=== PATIENT | male | born 1985 ===

== ENCOUNTER 2020-12-29 16:56 | Outpatient (REF) | payer BC, SELFPAY ==
[2020-12-29 21:18] LABS: Calculated LDL 98 mg/dL (<100); Cholesterol 162 mg/dL (<200); Glucose 90 mg/dL (74-106); HDL Cholesterol 45 mg/dL (40-60); Triglyceride 98 mg/dL (<150)
[2021-01-01 10:06] LABS: HIV-1/2 Ag & Ab Screen Negative (Negative)
[2021-01-01 10:34] LABS: Hepatitis C Ab w Rflx HCV PCR Negative (Negative)
== END 2020-12-29 16:57 | disposition home or self-care (01) ==
LOC: NCHCN 16:56
PROVIDERS: Visit Provider Nurse Practitioner Family
DX: Z00.00 Encounter for general adult medical examination without abnormal findings (principal); Z13.220 Encounter for screening for lipoid disorders; Z11.4 Encounter for screening for human immunodeficiency virus [HIV]; Z13.1 Encounter for screening for diabetes mellitus; Z11.59 Encounter for screening for other viral diseases
CPT/HCPCS: 80061; 82947; 86803; 87389

== ENCOUNTER 2025-03-13 02:01 | Emergency (ER) | payer BC, SELFPAY ==
--- NOTE | 2025-03-13 02:00 | DI.RAD_ITS ---
Exam(s) XR CHEST 2V PA LATERAL EXAM: XR CHEST 2V PA LATERAL CLINICAL HISTORY: cough, SOB TECHNIQUE: 2D digital imaging was performed. Two views. COMPARISON: No exams were available for comparison FINDINGS: HEART: Normal size. Aorta: Not dilated. PULMONARY VASCULATURE: Normal. MEDIASTINUM: Unremarkable. LUNGS: Clear. PLEURAL SPACE: No pleural effusion or pneumothorax. BONE:Unremarkable for age. SOFT TISSUES: Unremarkable. IMPRESSION: No acute abnormality. The preliminary [facility] report was reviewed. DATA REPOSITORY: RADIATION DOSE DELIVERED:
[2025-03-13 02:05] VITALS: BP 157/65; PULSE 92; RESP 18; TEMP 36.8; O2SAT 93
[2025-03-13 02:08] VITALS: RESP 16
--- NOTE | 2025-03-13 02:13 | ED.GENADUL_ITS ---
Discharge Plan Disposition Patient Disposition: Home Condition: Good Discharge Details Clinical Impression: Acute upper respiratory infection Primary Care Provider: Unknown,Unknown ED Provider: Reena Becerra Home Meds and New Rx's Prescriptions: No Action No Known Home Meds Discharge Instructions Instructions: Upper Respiratory Infection ED Additional Instructions: Albuterol inhaler up to every 4 hours as needed for shortness of breath and wheezing. Call your primary care doctor in the morning to schedule an appointment for within the next 72 hours to followup on your visit here. At that visit please mention your blood pressure (which is high here today) and your platelet (blood clotting cells) which are a little bit low. They may wish to recheck both of these. Return to the emergency department for new or worsening symptoms including fever, if you feel short of breath and it does not get better after using your inhaler, chest pain, or if you have any other concerns. HPI General Mode of arrival: ambulatory . Date/Time Provider Initiated Documentation: 03/13/25 02:02 . Limitations to Documentation: no limitations . Information obtained by: patient . HPI Narrative: 39yo M who reports hx of pneumonia multiple times in the past , otherwise no medical conditions, presenting with cough and shortness of breath. Symptoms sta rted yesterday with cough. This has persisted, today noticed shortness of breath like he 'can't take in a full breath of air'. No fevers; has felt chills and generally unwell. No chest pain or lightheadedness No known sick contacts. Otherwise in his usual state of health with no rash, nausea, vomiting, abdominal pain, headache, LE edema, or other concerns. Related Data Home Medications ?Medication ?Instructions ?Recorded ?Confirmed Unknown [No Known Home Meds] 03/13/25 0 03/13/25 Allergies Allergy/AdvReac Type Severity Reaction Status Date / Time No Known Allergies Allergy Unverified 03/13/25 02:10 General Stated Complaint: SOB NATY: 3 Review of Systems Narrative: see HPI Exam Narrative Exam Narrative: General: Alert, well appearing, well nourished, in no acute distress. Head: Normocephalic, atraumatic Neck: Trachea midline, ?Neck supple. ENT: ?MMM.? No oropharygeal lesions or exudate. Cardiac: ?RRR, no murmurs appreciated Resp: No respiratory distress. Mild wheeze R > L. Abd: ?Soft, non-distended, nontender Extremities: ?No deformities.? No peripheral edema. Neurologic: GCS 15. ? Moves all extremities freely against gravity Course Vital Signs Vital signs: Vital Signs Temperature 36.8 C 03/13/25 02:05 Pulse 92 H 03/13/25 02:05 Respiratory Rate 18 03/13/25 02:05 Blood Pressure 157/65 H 03/13/25 02:05 Pulse Oximetry 93 03/13/25 02:05 Temperature 36.8 C 03/13/25 02:05 Temperature Source Oral 03/13/25 02:05 Pulse 92 H 03/13/25 02:05 Respiratory Rate 16 03/13/25 02:08 Respiratory Effort Non-Labored 03/13/25 02:08 Blood Pressure 157/65 H 03/13/25 02:05 Pulse Oximetry 93 03/13/25 02:05 Pain Level 4 03/13/25 02:05 Medical Decision Making 39yo M who reports hx of pneumonia multiple times in the past , otherwise no medical conditions, presenting with cough and shortness of breath x 2 days. Vital signs reassuring on arrival. No respirtary distress on exam, does have bilateral wheezing. Will treat with albuterol neb and get labs and CXR. Not overtly septic, not suggestive of ACS, pulmonary embolism. Labs reviewed as below, CBC reassuring with no leukocytosis or anemia (does have mild thrombocytopenia), CMP with no actionable abnormalities. CXR independently reviewed; no focal pneumonia or pneumothorax on my view, radiology read with no acute findings. Respiratory viral swab negative for covid and flu. On reassessment he reports his breathing feels much better. No longer wheezing on exam. Repeat VS remain reassuring. Will discharge home with albuterol inhaler and advise PCP followup. Discharged home; discharge instructions and r eturn precautions were reviewed with patient who verbalized understanding. All questions were answered and he is in full agreement with the plan. Lab Data Lab results reviewed: Yes I reviewed the patient's lab results. PFSH All Active Problems (Updated 03/13/25 @ 03:17 by Reena Becerra MD) Acute upper respiratory infection (Acute) Social History Smoking/Tobacco Use Status: Current every day Smoking risk assessment performed?: Yes Alcohol Intake: current Alcohol Intake frequency: a few times a month Substance use type: does not use Housing: house [facility] Have you Been Recently Intoxicated or Drunk Within the Last 30 days?: No Have you Ever Experienced Previous Episodes of Alcohol Withdrawal?: No Have you ever Experienced Withdrawal Seizures?: No Have you ever Experienced Delirium Tremens(DT)s?: No Have you ever undergone Alcohol Rehabilitation Treatment (i.e, inpt ot outpatient treatment programs)?: No Have you ever Experienced Blackouts?: No Have you ever Combined Alcohol with other Downers within the last 90 days?: No Have you ever Combined Alcohol with any other Substance of Abuse during the last 90 days?: No Positive Blood Alcohol level on Presentation? [PCS.BAL]: No Evidence of Increased Autonomic Activity (i.e. HR>120, tremor, sweating, agitation, nausea)?: No Result: 0
[2025-03-13 02:28] LABS: Abs Immature Grans 0.02 10^3/uL (0.0-0.06); HCT 43.9 % (40.0-50.0); HGB 15.4 g/dL (13.5-17.5); Immature Grans % 0.2 %; MCH 32.6 pg (27.0-33.0); MCHC 35.1 % (32.0-36.0); MCV 93 fL (80-95); MPV 11.1 fL (8.0-11.0); Platelet Count 119 10^3/uL (130-400); RBC 4.72 10^6/uL (4.36-5.78); RDW 12.0 % (11.8-14.1); RDW-SD 41.8 fL; WBC 8.70 10^3/uL (4.4-10.8)
[2025-03-13 02:29] VITALS: O2SAT 93
[2025-03-13] MEDS: Albuterol 2.5 MG/3 ML INH SOLN VIAL UPD (02:29)
[2025-03-13 02:42] VITALS: PULSE 78; RESP 16; O2SAT 99
[2025-03-13 02:43] VITALS: PULSE 77; RESP 16; O2SAT 99
[2025-03-13 02:44] LABS: ALT 23 U/L (16-63); AST 22 U/L (15-37); Albumin 3.9 g/dL (3.4-5.0); Alkaline Phosphatase 75 U/L (46-116); Anion Gap 10.0 mmol/L (3-11); BUN 18 mg/dL (7-18); Bilirubin, Total 1.1 mg/dL (0.2-1.0); CO2 26.0 mmol/L (21.0-32.0); Calcium 8.7 mg/dL (8.5-10.1); Chloride 102 mmol/L (98-107); Estimated GFR 114.74 (mL/min/1.73m2); Glucose 113 mg/dL (74-106); Potassium 3.8 mmol/L (3.5-5.1); Sodium 138 mmol/L (136-145); Total Protein 6.9 g/dL (6.4-8.2)
--- NOTE | 2025-03-13 03:05 | DI.[facility]_ITS ---
PROCEDURE INFORMATION: Exam: XR Chest Exam date and time: 03/13/2025 2:28 AM Age: 39 years old Clinical indication: Other: Cough, SOB TECHNIQUE: Imaging protocol: Radiologic exam of the chest. Views: 2 views. COMPARISON: No relevant prior studies available. FINDINGS: Lungs: Unremarkable. No consolidation. Pleural spaces: Unremarkable. No pleural effusion. No pneumothorax. Heart/Mediastinum: Unremarkable. No cardiomegaly. Bones/joints: Unremarkable. IMPRESSION: No acute findings. Dictated and Authenticated by: Keenan Hwang MD. Orderin Hernan Valles MD
[2025-03-13] MEDS: Albuterol HFA 8 GM 60 PUFF INH IH (03:19)
[2025-03-13 03:20] VITALS: BP 128/83; PULSE 78; RESP 16; O2SAT 94
== END 2025-03-13 03:25 | disposition home or self-care (01) ==
PROVIDERS: Emergency Provider Student in an Organized Health Care Education/Training Program
DX: J06.9 Acute upper respiratory infection, unspecified (principal)
CPT/HCPCS: 99284 ×2; 94640; 87428; 80053; 71046; 85025; J7613